=== PATIENT | female | born 1990 | race Caucasian/White ===

== ENCOUNTER 2020-06-14 14:28 | Emergency (ER) | payer OTHER ==
[~2020-06-14] VITALS: Ht 165.1 cm; Wt 129.3 kg
[~2020-06-14 14:28] MED LIST: PREN-385 PO
[2020-06-14 14:42] VITALS: BP 142/77
--- NOTE | 2020-06-14 15:00 | NUR ---
30 Y/O FEMALE presents to ED with laceration to left middle finger s/p cutting finger on metal medhat at 1400 today, pt had finger wraped in bandage, no bleeding noted, ringer warm to touch, sensation intact. medhx: denies nkda
[2020-06-14] MEDS ORDERED: LIDOCAINE MPF 1% 10 MG/ML VIAL INJ ONE ×2 (15:35→15:50)
[2020-06-14] MEDS ORDERED: BACITRACIN OINT 500 UNITS/GM PKT TP ONE ×2 (15:55)
--- NOTE | 2020-06-14 16:10 | NUR ---
T DAP VACCINE GIVEN TO PT
[2020-06-14 16:19] VITALS: BP 142/77
== END 2020-06-14 16:20 | disposition home or self-care (01) ==
LOC: MED 14:28
DX: S61.213A Laceration without foreign body of left middle finger without damage to nail, initial encounter (principal); Z79.899 Other long term (current) drug therapy; Z98.890 Other specified postprocedural states; W27.2XXA Contact with scissors, initial encounter; Y93.89 Activity, other specified; Y92.89 Other specified places as the place of occurrence of the external cause; Y99.8 Other external cause status
CPT/HCPCS: 12001; 90471; 90715; 99283; J2001

== ENCOUNTER 2020-11-20 11:57 | Emergency (ER) | payer OTHER ==
[~2020-11-20] VITALS: Ht 167.6 cm; Wt 104.3 kg
[2020-11-20 12:07] VITALS: BP 138/88
--- NOTE | 2020-11-20 12:07 | NUR ---
Patient ambulated to bed 01 with steady/even gait.
--- NOTE | 2020-11-20 12:30 | NUR ---
Lab at bedside for blood draw.
--- NOTE | 2020-11-20 12:35 | NUR ---
30 y/o F coming in from home with c/c abdominal pain since May/2020. Patient reports waking up with worsening epigastric pain, reports /10, sharp/intermittent, non-radiating pain. Patient states it alleviates while laying down. Patient states no medications prior to arrival. Last BM yesterday normal/semi-formed/brown; LMP 11/19/2020. Patient denies recent Covid vaccination, N/V/D, constipation, urinary symptoms, back pain, fever/chills, chest pain, SOB, blurry vision, headache, dizziness, weakness/fatigue. Bed locked in lowest position, side rails x 1, call light in reach. PMH/Sx/Meds: Denies NKA Sx: 2019.
[2020-11-20 12:41] LABS: BASOPHILS % (AUTO) 0.4 % (0.0-2.0); EOSINOPHILS # (AUTO) 0.2 K/uL (0-0.4); EOSINOPHILS % (AUTO) 2.2 % (0.0-4.0); HEMATOCRIT 39.4 % (36-48); LYMPHOCYTES # (AUTO) 2.1 K/uL (2.5-16.5); LYMPHOCYTES % (AUTO) 23.3 % (20.5-51.1); MEAN CORPUSCULAR HEMOGLOBIN 27 pg (27-31); MEAN CORPUSCULAR HGB CONC 33 g/dL (33-37); MEAN CORPUSCULAR VOLUME 81.2 fL (80-94); MONOCYTES # (AUTO) 0.4 K/uL (0.8-1.0); NEUTROPHILS # (AUTO) 6.5 K/uL (1.8-7.7); NEUTROPHILS % (AUTO) 70.1 % (42.2-75.2); PLATELET COUNT (AUTO) 282 K/uL (140-450); RED BLOOD CELL COUNT(AUTO) 4.85 MIL/uL (4.20-5.40); RED CELL DISTRIBUTION WIDTH 13.6 % (11.6-13.7); WHITE BLOOD COUNT (AUTO) 9.2 K/uL (4.8-10.8)
--- NOTE | 2020-11-20 12:50 | NUR ---
Dr. Mcmanus is evaluating patient at bedside.
[2020-11-20 12:59] LABS: ALBUMIN 3.6 g/dL (3.4-5.0); ANION GAP 8.6 (8-16); CARBON DIOXIDE 28.1 mmol/L (21-32); CREATININE 0.7 mg/dL (0.6-1.3); POTASSIUM 3.7 mmol/L (3.5-5.1); TOTAL BILIRUBIN 0.2 mg/dL (0.0-1.0)
--- NOTE | 2020-11-20 13:32 | NUR ---
Patient resting in semi-fowlers position. Respirations even/unlabored. Bed locked in lowest position, side rails x 1, call light in reach.
--- NOTE | 2020-11-20 14:45 | NUR ---
Patient resting in semi-fowlers position. Respirations even/unlabored. Bed locked in lowest position, side rails x 1, call light in reach.
[2020-11-20 14:50] VITALS: BP 130/82
--- NOTE | 2020-11-20 14:50 | NUR ---
Patient discharged with v/s stable. Written and verbal after care instructions given and explained. Patient verbalized understanding. Ambulatory with steady gait. All questions addressed prior to discharge. Advised to follow up with PMD.
== END 2020-11-20 14:50 | disposition home or self-care (01) ==
LOC: MED 11:57
DX: R10.10 Upper abdominal pain, unspecified (principal)
CPT/HCPCS: 36415; 80053; 81002; 81025; 83690; 85025; 99283

== ENCOUNTER 2021-04-04 00:02 | Emergency (ER) | payer OTHER ==
[~2021-04-04] VITALS: Ht 167.6 cm; Wt 130.6 kg
[2021-04-04 00:31] VITALS: BP 148/84
--- NOTE | 2021-04-04 00:34 | NUR ---
TO LOBBY A/W BED AMBULATORY
--- NOTE | 2021-04-04 00:36 | NUR ---
SEEN AND EXAMINED BY VICTORIANO WITH ORDERS, CARRIED OUT
[2021-04-04 01:08] LABS: BASOPHILS % (AUTO) 0.2 % (0.0-2.0); EOSINOPHILS # (AUTO) 0.2 K/uL (0-0.4); EOSINOPHILS % (AUTO) 2.3 % (0.0-4.0); HEMATOCRIT 39.9 % (36-48); HEMOGLOBIN 13.2 g/dL (12.0-16.0); LYMPHOCYTES # (AUTO) 1.3 K/uL (2.5-16.5); LYMPHOCYTES % (AUTO) 18.6 % (20.5-51.1); MEAN CORPUSCULAR HEMOGLOBIN 27 pg (27-31); MEAN CORPUSCULAR HGB CONC 33 g/dL (33-37); MEAN CORPUSCULAR VOLUME 81.9 fL (80-94); MONOCYTES # (AUTO) 0.4 K/uL (0.8-1.0); MONOCYTES % (AUTO) 5.8 % (1.7-9.3); NEUTROPHILS # (AUTO) 5.3 K/uL (1.8-7.7); NEUTROPHILS % (AUTO) 73.1 % (42.2-75.2); PLATELET COUNT (AUTO) 264 K/uL (140-450); RED BLOOD CELL COUNT(AUTO) 4.87 MIL/uL (4.20-5.40); WHITE BLOOD COUNT (AUTO) 7.2 K/uL (4.8-10.8)
[2021-04-04] MEDS ORDERED: ALUMINUM HYD/MAG/SIMETHICONE 30 ML UDC PO ONE (01:25)
[2021-04-04] MEDS ORDERED: FAMOTIDINE 20 MG TAB PO ONE (01:25)
[2021-04-04 01:27] LABS: ALBUMIN 3.9 g/dL (3.4-5.0); ANION GAP 9.7 (8-16); CARBON DIOXIDE 29.4 mmol/L (21-32); CREATININE 0.8 mg/dL (0.6-1.3); POTASSIUM 4.1 mmol/L (3.5-5.1); TOTAL BILIRUBIN 2.3 mg/dL (0.0-1.0)
--- NOTE | 2021-04-04 01:30 | NUR ---
MEDICATED PER ERMDS ORDER, TOLERATED WELL.
--- NOTE | 2021-04-04 05:00 | NUR ---
ALL RESULTS BACK AND NOTED BY ERMD AND FOR D/C
[2021-04-04 05:45] VITALS: BP 121/79
[2021-04-06 06:07] LABS: HEPATITIS A ANTIBODY IGM Negative (Negative); HEPATITIS B CORE AB TOTAL Negative (Negative); HEPATITIS B SURFACE ANTIBODY Reactive (.); HEPATITIS B SURFACE ANTIGEN Negative (Negative)
== END 2021-04-04 05:45 | disposition home or self-care (01) ==
LOC: MED 00:02
DX: K76.0 Fatty (change of) liver, not elsewhere classified (principal); K80.80 Other cholelithiasis without obstruction; Z79.899 Other long term (current) drug therapy
CPT/HCPCS: 36415; 76700; 80053; 81002; 81025; 83690; 85025; 86704; 86706; 86708; 86709; 86803; 87340; 99284; G0480; Q0092

== ENCOUNTER 2021-04-26 09:37 | Emergency (ER) | payer OTHER ==
[~2021-04-26] VITALS: Ht 167.6 cm; Wt 128.4 kg
[2021-04-26 09:54] VITALS: BP 151/81
--- NOTE | 2021-04-26 10:02 | NUR ---
Pt using restroom to provide urine sample
--- NOTE | 2021-04-26 10:05 | NUR ---
31 Y/O FEMALE BIB SELF FOR RUQ abdominal pain for 1 week. Pt dx with gallbladder stones. Pt seen PCP today, and referred to ED. Pain level 0/10, pain comes and goes. Pt has N/V, No red/dark colored emesis noted. No emesis today. Denies diarrhea. Pt also has generalized itchyness x1 week. No rashes noted. AOX 4, able to make needs known. Allergies: NKA Med hx: gallstones. No home meds
--- NOTE | 2021-04-26 10:07 | NUR ---
PT AMBULATED TO BED 6
--- NOTE | 2021-04-26 10:33 | NUR ---
urine processed and taken to lab
--- NOTE | 2021-04-26 10:41 | NUR ---
blood drawn and walked down to lab by Michael
--- NOTE | 2021-04-26 10:42 | NUR ---
US at bedside performing procedure
[2021-04-26] MEDS: KETOROLAC 15 MG/ML VIAL IVP ONE (10:44)
[2021-04-26] MEDS: ONDANSETRON 4 MG/2 ML VIAL IVP ONE (10:45)
[2021-04-26 10:50] LABS: BASOPHILS % (AUTO) 0.4 % (0.0-2.0); EOSINOPHILS # (AUTO) 0.3 K/uL (0-0.4); EOSINOPHILS % (AUTO) 4.4 % (0.0-4.0); HEMATOCRIT 40.3 % (36-48); HEMOGLOBIN 13.3 g/dL (12.0-16.0); LYMPHOCYTES % (AUTO) 26.2 % (20.5-51.1); MEAN CORPUSCULAR HEMOGLOBIN 28 pg (27-31); MEAN CORPUSCULAR HGB CONC 33 g/dL (33-37); MEAN CORPUSCULAR VOLUME 83.2 fL (80-94); MONOCYTES # (AUTO) 0.6 K/uL (0.8-1.0); MONOCYTES % (AUTO) 7.2 % (1.7-9.3); NEUTROPHILS # (AUTO) 4.7 K/uL (1.8-7.7); NEUTROPHILS % (AUTO) 61.8 % (42.2-75.2); PLATELET COUNT (AUTO) 303 K/uL (140-450); RED BLOOD CELL COUNT(AUTO) 4.85 MIL/uL (4.20-5.40); WHITE BLOOD COUNT (AUTO) 7.7 K/uL (4.8-10.8)
--- NOTE | 2021-04-26 10:57 | NUR ---
[facility]
[2021-04-26 11:17] LABS: ALBUMIN 3.7 g/dL (3.4-5.0); ANION GAP 12.4 (8-16); CREATININE 0.7 mg/dL (0.6-1.3); POTASSIUM 4.4 mmol/L (3.5-5.1); TOTAL BILIRUBIN 0.9 mg/dL (0.0-1.0)
[2021-04-26] MEDS ORDERED: NAPR-54 PO (12:06)
[2021-04-26] MEDS ORDERED: DIPH25TA53 PO (12:06)
[2021-04-26] MEDS ORDERED: ONDA-24 SL (12:06)
[2021-04-26 12:11] VITALS: BP 127/75
--- NOTE | 2021-04-26 12:11 | NUR ---
Patient discharged with v/s stable. Written and verbal after care instructions given and explained. Patient alert, oriented and verbalized understanding of instructions. Ambulatory with steady gait. All questions addressed prior to discharge. ID band removed. Patient advised to follow up with PMD. Rx of naproxen, ondasetron, benadryl given. Patient educated on indication of medication including possible reaction and side effects. Opportunity to ask questions provided and answered.
== END 2021-04-26 12:11 | disposition home or self-care (01) ==
LOC: MED 09:37
DX: K80.20 Calculus of gallbladder without cholecystitis without obstruction (principal); R10.9 Unspecified abdominal pain; R11.2 Nausea with vomiting, unspecified; Z79.899 Other long term (current) drug therapy
CPT/HCPCS: 74176; 76705; 80053; 81002; 81025; 83690; 85025; 96374; 96375; 99285; J1885; J2405; Q0092

== ENCOUNTER 2022-04-13 08:28 | Emergency (ER) | payer OTHER ==
[~2022-04-13] VITALS: Ht 167.6 cm; Wt 127.0 kg
[~2022-04-13 08:28] MED LIST changes: +DIPH25TA53 PO; +NAPR-54 PO; +ONDA-188 SL
[2022-04-13 08:33] VITALS: BP 141/78
--- NOTE | 2022-04-13 08:39 | NUR ---
PT AMB TO BED 7.
[2022-04-13] MEDS ORDERED: MECLIZINE 25 MG TAB PO ONE (09:00)
[2022-04-13] MEDS ORDERED: ONDA-188 SL (09:02)
[2022-04-13] MEDS ORDERED: MECL-303 PO (09:02)
--- NOTE | 2022-04-13 09:05 | NUR ---
32 y/o female bib self for dizziness x 3 days. Patient has an ear infection that was diagnosed on Monday and is currently on antibiotics. Patient denies any fever, chills or SOB. Patient denies any pain. Medical History: Denies ALLERGY: PENICILLIN
--- NOTE | 2022-04-13 09:37 | NUR ---
Patient discharged with v/s stable. Written and verbal after care instructions given. Patient alert, oriented and verbalized understanding of instructions. Ambulatory with steady gait. All questions addressed prior to discharge. ID band removed. Patient advised to follow up with PMD. Rx of Zofran and Meclizine given. Opportunity to ask questions provided and answered.
== END 2022-04-13 09:37 | disposition home or self-care (01) ==
LOC: MED 08:28
DX: R42 Dizziness and giddiness (principal)
CPT/HCPCS: 99283; J8597